=== PATIENT | male | born 1960 | race Caucasian/White ===

== ENCOUNTER 2024-01-23 09:25 | Outpatient (CLI) | payer BC ==
[~2024-01-23 09:25] MED LIST: Magnevist 469MG/ML 20 ML VIAL ONE
== END 2024-01-23 09:26 | disposition home or self-care (01) ==
LOC: CSHMRI 09:25
PROVIDERS: ATTEND Urology
DX: R97.20 Elevated prostate specific antigen [PSA] (principal)
CPT/HCPCS: 72197